=== PATIENT | male | born 1960 | race American Indian/Alaskan Native ===

== ENCOUNTER 2021-10-30 20:01 | Emergency (ER) | payer MEDICAID ==
[2021-10-31] MEDS ORDERED: LIDOCAINE-MPF (1%) 10 MG/1 ML VIAL 5 ML INFILTRATI ONE (04:03)
[2021-10-31] MEDS ORDERED: HYDROcodone/ACETAMINOPHEN 5-325 MG TAB PO ONE (04:03)
[2021-10-31] MEDS ORDERED: TETANUS,DIPH,PERTUSS(ACELL) VACCINE 0.5 ML SYRINGE IM ONE (04:03)
--- NOTE | 2021-10-31 05:28 | Emergency Department Report ---
ED General Adult HPI - General Chief complaint: Wound/Laceration Stated complaint: LEFT THUMB LACERATION/BLEEDING Time Seen by Provider: 10/31/21 03:55 Source: patient Mode of arrival: Ambulatory Limitations: No Limitations - History of Present Illness Initial comments: Patient 60-year-old male who presents for left lateral distal palm laceration. Patient states he accidentally cut it with a kitchen knife that happened approximately 8 hours ago there is no obvious nerve muscle or tendon damage as range of motion remains intact. There is no obvious deformity. Patient denies numbness or tingling. States 5/10 pain. Bleeding was controlled by direct pressure self applied. Last tetanus unknown, patient denies other symptoms. Patient drove self to ED patient is ambulatory with no acute distress. Acute distress Severity scale (0 -10): 9 - Related Data Previous Rx's Medication Instructions Recorded Last Taken Type cephALEXin [Keflex] 500 mg PO Q8HR 7 Days #21 cap 10/31/21 Unknown Rx traMADoL [Ultram] 50 mg PO Q6HR PRN #12 tablet 10/31/21 Unknown Rx Allergies Allergy/AdvReac Type Severity Reaction Status Date / Time No Known Allergies Allergy Verified 10/30/21 22:15 ED Review of Systems ROS: Stated complaint: LEFT THUMB LACERATION/BLEEDING Other details as noted in HPI Constitutional: denies: chills, fever Eyes: denies: eye pain, eye discharge, vision change ENT: denies: ear pain, throat pain Respiratory: denies: cough, shortness of breath, wheezing Cardiovascular: denies: chest pain, palpitations Endocrine: no symptoms reported Gastrointestinal: denies: abdominal pain, nausea, diarrhea Genitourinary: denies: urgency, dysuria Musculoskeletal: other (Left lateral thumb laceration) Skin: other. denies: rash, lesions Neurological: denies: headache, weakness, paresthesias Psychiatric: denies: anxiety, depression Hematological/Lymphatic: denies: easy bleeding, easy bruising ED Past Medical Hx - Medications Home Medications: Home Medications Medication Instructions Recorded Confirmed Last Taken Type cephALEXin [Keflex] 500 mg PO Q8HR 7 Days #21 cap 10/31/21 Unknown Rx traMADoL [Ultram] 50 mg PO Q6HR PRN #12 tablet 10/31/21 Unknown Rx ED Physical Exam - General Limitations: No Limitations General appearance: alert, in no apparent distress - Head Head exam: Present: normocephalic, normal inspection - Eye Eye exam: Present: PERRL, EOMI Pupils: Present: normal accommodation - ENT ENT exam: Present: mucous membranes moist - Neck Neck exam: Present: normal inspection, full ROM. Absent: tenderness - Respiratory Respiratory exam: Present: normal lung sounds bilaterally. Absent: respiratory distress, wheezes - Cardiovascular Cardiovascular Exam: Present: regular rate, normal rhythm, normal heart sounds. Absent: systolic murmur, diastolic murmur, rubs, gallop - GI/Abdominal GI/Abdominal exam: Present: soft, normal bowel sounds. Absent: distended, tenderness - Rectal Rectal exam: Present: deferred - Extremities Exam Extremities exam: Present: normal inspection, full ROM, normal capillary refill - Expanded Upper Extremity Exam Left Hand Wrist exam: Present: full ROM, tenderness, laceration (Left lateral thumb laceration 3 cm flap no nail involvement). Absent: ecchymosis, deformity, crepidus, amputation, nail avulsion, subungual hematoma Neuro motor exam: Present: wrist extension intact, thumb opposition intact, thumb IP flexion intact, thumb adduction intact, fingers 2-5 abduction intact Neurosensory exam: Present: radial nerve intact Vascular: Present: normal capillary refill - Back Exam Back exam: Present: normal inspection, full ROM. Absent: tenderness - Neurological Exam Neurological exam: Present: alert, oriented X3, CN II-XII intact, normal gait, reflexes normal. Absent: motor sensory deficit - Expanded Neurological Exam Expanded Patient oriented to: Present: person, place, time Speech: Present: fluid speech Cranial nerves: EOM's Intact: Normal Motor strength exam: RUE: 5, LUE: 5, RLE: 5, LLE: 5 Best Eye Response (Marie): (4) open spontaneously Best Motor Response (Marie): (6) obeys commands Best Verbal Response ([place]): (5) oriented Marie Total: 15 - Psychiatric Psychiatric exam: Present: normal affect, normal mood - Skin Skin exam: Present: warm, dry, normal color, other (Laceration as above left lateral thumb 3 cm laceration no nail involvement no nerve muscle or tendon damage. Range of motion is intact to direct opposition. [employer] less than 3 seconds bilateral. Pulses intact). Absent: rash ED Course Vital Signs 10/30/21 10/31/21 20:43 05:20 Temperature 98.6 F Pulse Rate 68 Respiratory 18 16 Rate Blood Pressure 146/102 O2 Sat by Pulse 98 Oximetry - Laceration /Wound Repair Left Lateral Finger Wound Location: upper extremity (Left lateral thumb laceration 3 cm) Wound Length (cm): 3 Wound's Depth, Shape: superficial Wound Explored: clean Irrigated w/ Saline (ccs): 30 Betadine Prep?: Yes Anesthesia: 1% Lidocaine Volume Anesthetic (ccs): 2 (Anesthesia is achieved) Wound Debrided: None required Suture Size/Type: 4:0, proline Number of Sutures: 7 Layer Closure?: No Sterile Dressing Applied?: Yes Progress: Left lateral thumb laceration 3 cm no nerve muscle or tendon damage. Wound cleaned with Betadine solution anesthesia 1% lidocaine x2 cc anesthesia is achieved via digital block. Site irrigated with 30 cc sterile saline no foreign bodies noted. Wound closed with 4-0 Prolene times 7 sutures. Edges well approximated all bleeding is controlled sterile dressing applied. Patient given wound care instruction including follow-up with primary care doctor in 2 days for wound check. 7 to 2 days for suture removal. Patient verbalized agreement and understanding of same CMS remains intact. Patient be DC'd in stable condition at this time. Patient tolerated procedure with minimal distress all bleeding is controlled ED Medical Decision Making - Medical Decision Making Thumb laceration repair see procedure note. Patient given follow-up instructions including symptoms of infection, follow-up with primary care doctor for wound check and suture removal. Medications as directed. Sterile dressing remains intact all bleeding controlled patient DC'd in stable condition at this time. Critical care attestation.: If time is entered above; I have spent that time in minutes in the direct care of this critically ill patient, excluding procedure time. ED Disposition Clinical Impression: Laceration of thumb Qualifiers: Encounter type: initial encounter Damage to nail status: without damage Foreign body presence: without foreign body Laterality: left Qualified Code(s): S61.012A - Laceration without foreign body of left thumb without damage to nail, initial encounter Disposition: HOME / SELF CARE / HOMELESS Is pt being admited?: No Does the pt Need Aspirin: No Condition: Stable Instructions: Sutures, [place], or Adhesive Wound Closure Additional Instructions: Take medications as prescribed, follow-up with your doctor in 2 days for wound check 7 to 10 days for suture removal. Return to emergency department should symptoms worsen. Prescriptions: cephALEXin [Keflex] 500 mg PO Q8HR 7 Days #21 cap traMADoL [Ultram] 50 mg PO Q6HR PRN #12 tablet PRN Reason: Pain Referrals: EUSEBIO ANTONIO MD [Other] - 3-5 Days Forms: Work/School Release Form(ED) Time of Disposition: 05:34
[2021-10-31 06:10] VITALS: BP 176/100
== END 2021-10-31 06:10 | disposition home or self-care (01) ==
LOC: ED 20:01
DX: S61.012A Laceration without foreign body of left thumb without damage to nail, initial encounter (principal); W26.0XXA Contact with knife, initial encounter; Y93.89 Activity, other specified; Y92.89 Other specified places as the place of occurrence of the external cause; Y99.8 Other external cause status
CPT/HCPCS: 12002; 90471; 90715; 99282; J3490